=== PATIENT | female | born 1985 | race Caucasian/White ===

== ENCOUNTER 2023-07-06 13:53 | Outpatient (CLI) | payer OTHER ==
--- NOTE | 2023-07-06 14:29 | Sleep Patient Instructions ---
Sleep Center Visit Summary - Patient Visit Information Reason for Visit: Initial consult for evaluation of sleep disordered breathing and other sleep issues. - Patient Instructions Instructions Attached: Sleep Study Additional Instructions: You will be completing a sleep study, either an in-lab polysomnography (PSG) or home sleep study (HST). You will follow-up in the sleep care office after the sleep study is completed to hear the results and talk about therapy, if needed. You will be called by our office staff to schedule this appointment, but you may contact us with any questions. - Clinic Information Contact: [facility] [address] [place] [address] [email or web address] T: [phone]
--- NOTE | 2023-07-06 14:38 | SLEEP CARE CONSULTATION ---
Information from patient questionnaire entered by Kesha Vaughan. I have reviewed and concur with the information entered by Kesha Vaughan. This document represents the service I personally performed and the decisions made by me, Lynn Roque ARNP. History of Present Illness Service Date and Time: 07/06/2023 1353 Reason for Visit: New patient Chief Complaint: reports: Insomnia, Unrefreshed sleep, Snoring, Frequent awakenings at night Date of Onset: PROGRESSIVELY Usual bedtime: 6083-9917 Time it takes to fall asleep: A FEW HRS Snores at night: Yes Observed to quit breathing while asleep: No Sleeps alone due to snoring: Yes Number of times waking at night: 4-6 Reasons for waking at night: reports: Snoring, Other (UNKNOWN, noises). denies: Choking, Gasping for air Toss, Turn, or Twitch while sleeping: Yes Recalls having dreams: No Usually gets out of bed at: 5735-1651 Feels refreshed in the morning: No Morning headache: No Sleepy or fatigued during the day: Yes Ever fallen asleep while driving: No Takes day naps: Yes (1-2 times a week after work, 1 or more on weekends; 15 mins to 3-4 hours) Dreams during day naps: No Prior sleep studies: No Additional HPI information: I had the pleasure of seeing YARON REBOLLAR today regarding the possibility of her having a sleep disorder. Her current complaints are insomnia, fatigue, frequent night awakenings, snoring and unrefreshed sleep. She says she comes here for lack of sleep and has been having trouble sleeping at night. She says her mother snores loudly and has sleep apnea. She says sometimes when she wakes up in middle of night she is unable to go back to sleep. It also takes a "few hours" to fall asleep. Her brain will not shut off and let her go to sleep. She does not wake up feeling refreshed. Her tells her that she snores loudly and will often sleep separate because of the snoring. He has not mentioned if he has noted any pauses in breathing. She will take regular naps that can range from 15 minutes to 3-4 hours. She does talk in her sleep. 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 Patient is Single and lives in . Have you smoked in the past 12 months: No Cigarettes per day (20/pack): 20 Years of smokin Quit date: 2009 Smoking Pack Years: 6.0 Alcohol use: Yes Alcohol amount and frequency: 1 GLASS WINE 2 BEERS 3-4X WEEK Caffeine use: Yes Caffeine amount and frequency: 1 12OZ CUP OF COFFEE 2-3TIMES A WEEK Family History Family history of sleep disordered breathing: Yes Family Hx Sleep Apnea: Mother: Snoring, Sleep apnea - Treated Allergies and Home Medications Known drug allergies: No Drug allergies reviewed: Yes Home medication list reviewed: Yes Allergy and home medication list: Allergies No Known Drug Allergies Allergy (Verified 07/02/23 11:30) Home Medications Medication Instructions Recorded Confirmed Last Taken Type Allertec See Rx Instructions .ROUTE .COMPLEX 07/06/23 07/06/23 Unknown History Aspirin [Sriram] See Rx Instructions .ROUTE .COMPLEX 07/06/23 07/06/23 Unknown History Excedrin See Rx Instructions .ROUTE .COMPLEX 07/06/23 07/06/23 Unknown History Ibuprofen [Advil] See Rx Instructions .ROUTE .COMPLEX 07/06/23 07/06/23 Unknown History Review of Systems Weight gain over past 5 years: 20-25 Cardiovascular: denies: high blood pressure Gastrointestinal: denies: heartburn Neurological: denies: headaches, head trauma Psychiatric: reports: mood disorder (PTSD). denies: anxiety, depression Ear/Nose/Throat: reports: nasal congestion, sinus problems, wisdom teeth removed. denies: injury to nose, tonsillectomy Endocrine: reports: sluggishness Musculoskeletal: reports: joint pain, back pain, joint swelling, muscle pain or cramping Immunologic: reports: sneezing, allergies to food or environment (seasonal, all; cat dander, dog dander) Physical Exam Vital signs obtained and entered by: KESHA Power MA Blood Pressure: 115/72 (RIGHT ARM) Cuff size: regular Heart Rate: 67 O2 Saturation: 97 Height: 5 ft 0.75 in Weight: 169 lb 6.4 oz Body Mass Index: 32.3 BMI Classification: Obese Neck circumference: 14 Mouth and throat: narrow oropharynx Soft palate: normal Hard palate: normal Uvula: normal Uvula visualization: 25% Mallampati Class III Tongue: enlarged in size with teeth thomson on lateral edges Tonsils: small Neck: normal w/o lymphadenopathy or thyromegaly Heart: regular rate and rhythm Lungs: clear bilaterally Impression and Plan 1. Suspected Obstructive Sleep Apnea-Hypopnea Syndrome, as suggested by a history of loud and irregular snoring, frequent awakening during the night, unrefreshed sleep, cognitive impairment, and excessive daytime sleepiness. Narrow oropharynx and obesity are common predisposing factors for obstructive sleep apnea-hypopnea syndrome. I recommend proceeding to polysomnography to co nfirm the diagnosis and to assess severity. If the patient has significant sleep disordered breathing, a manual CPAP titration study will also be performed to find the optimal treatment pressure. I informed the patient of what the sleep studies involve and after some discussion, obtained agreement to proceed. The pathophysiology of obstructive sleep apnea-hypopnea syndrome was discussed with the patient and health risks of cardiovascular and cerebrovascular disease if not treated. Risks of drowsy driving discussed in detail and patient advised to avoid long distance driving and to parts puller at the first sign of drowsiness. Patient agreed to plan. * Schedule polysomnography +- manual CPAP titration study and return in 1-2 weeks after the study to discuss result and initiate therapy. * Avoid long distance driving or driving when feeling sleepy. * Avoid alcohol, sedative and muscle relaxant around bedtime. * Attempt to lose weight. * Review instructions provided by trained office staff on how to prepare for the sleep study. * Return for follow-up after sleep study completed. Counseling Topics: Weight loss health impact Plan: PSG Visit Type: In Office Time Spent with Patient (minutes): 30 Provider Statement: I spent 100% of the Face to Face Visit with the patient with greater than 50% spent counseling the patient and coordination of care.
[2023-07-06 14:53] VITALS: BP 115/72; O2SAT 97
== END 2023-07-06 13:54 | disposition home or self-care (01) ==
LOC: SC 13:53
PROVIDERS: ATTEND Nurse Practitioner Family
DX: R06.83 Snoring (principal); G47.8 Other sleep disorders; R41.89 Other symptoms and signs involving cognitive functions and awareness; G47.10 Hypersomnia, unspecified; G47.00 Insomnia, unspecified; R53.83 Other fatigue
CPT/HCPCS: 99203; 99212

== ENCOUNTER 2023-07-27 19:25 | Outpatient (CLI) | payer OTHER | END 2023-07-27 19:26 | disposition home or self-care (01) | LOC: SC 19:25 | PROVIDERS: ATTEND Nurse Practitioner Family | DX: R06.83 Snoring (principal); G47.10 Hypersomnia, unspecified; R53.83 Other fatigue; G47.8 Other sleep disorders; E66.3 Overweight | CPT/HCPCS: 95810 ==

== ENCOUNTER 2023-09-10 10:47 | Outpatient (CLI) | payer OTHER ==
--- NOTE | 2023-09-10 11:06 | Sleep Patient Instructions ---
Sleep Center Visit Summary - Patient Visit Information Reason for Visit: Sleep study follow-up - Patient Instructions Instructions Attached: Snoring Tips Prevent, Insomnia Tx, Insomnia Additional Instructions: Your sleep study today was negative for significant sleep disordered breathing. You do appear to have sleep maintenance insomnia for which we will have you fill out a 2 week sleep diary and follow up with Dr. Kearney for further evaluat ion and help. You were found to have episodes of snoring. There are different ways to control snoring including weight loss, oral devices made by a dentist or surgical options through ENT specialist. You should not use oral devices that do not fit properly because they can affect your bite. You should also check insurance coverage of oral devices for snoring because they may not be cover well. You may obtain a referral to an ENT specialist through your primary provider. Follow-up in 1-2 months for insomnia. - Clinic Information Contact: [facility] [address] [place] [address] [email or web address] T: [phone]
--- NOTE | 2023-09-10 11:12 | SLEEP CARE CONSULTATION ---
Information from patient questionnaire entered by Kesha Vaughan. I have reviewed and concur with the information entered by Kesha Vaughan. This document represents the service I personally performed and the decisions made by , Lynn Roque ARNP. History of Present Illness Service Date and Time: 09/10/2023 104 Initial [place] Sleepiness Scale score: 10 (07/06/23) Current [place] Sleepiness Scale score: 8 Additional HPI information: YARON RODRÍGUEZ returns for follow up and results of the recently performed polysomnography. The patient was informed of the following findings: No significant sleep disordered breathing with an average AHI of 0.1 and sudha oxygen saturation of 91%. I explained the pathophysiology behind obstructive sleep apnea. Patient does not have sleep apnea and was advised how weight gain could increase the risk of developing sleep apnea in the future. I strongly encouraged the patient to lose weight. Patient has moderate snoring. Snoring can be reduced by weight loss. Weight loss is best achieved with diet consult. Patient instructed to contact PCP for referral. Snoring can also be treated with an oral appliance from a dentist. Advised to check insurance coverage. In addition, an ENT evaluation can be do to see if other treatment is indicated. Patient counseled not drink alcohol less than 4 hours before bedtime as it can increase snoring and apnea. Patient was cautioned about risks of drowsy driving until sleepiness symptoms resolve. Patient denies drowsy driving. Sleep Study - Results Type of Sleep Study: Polysomnography (COMPLETED 07/27/23) Prior sleep studies: No Polysomnography/Home Sleep Study results: IMPRESSION: The quality of the study is good. The patient had normal sleep efficiency. The sleep architecture was also normal. Respiratory monitoring showed no significant sleep disordered breathing (AHI = 0.1) associated or hypoxia (sudha oxygen saturation of 91%). The patient slept adequately in supine position (supine AHI = 0.4; nonsupine = 0.00). Snore was infrequent and moderate in intensity. There was no significant periodic leg movement of sleep. Cardiac rhythm was normal sinus rhythm without significant arrhythmia. No abnormal behavior (parasomnia) observed during the night. Allergies and Home Medications Known drug allergies: No Drug allergies reviewed: Yes Home medication list reviewed: Yes (Allertec, Zyrtec) Allergy and home medication list: Allergies No Known Drug Allergies Allergy (Verified 09/08/23 14:52) Review of Systems Review of systems same as previous: Yes (no changes) Physical Exam Vital signs obtained and entered by: LYNN RAMIREZ-Jannet Blood Pressure: 126/71 Cuff size: long (right arm) Heart Rate: 62 O2 Saturation: 98 Height: 5 ft 0.75 in Weight: 172 lb 3.2 oz Body Mass Index: 32.8 BMI Classification: Obese Impression and Plan 1. Snoring but no significant sleep disordered breathing. Patient advised that often weight loss will reduce snoring as well as apnea risk. An oral appliance can also be used for snoring. This would require a dental consultation. Patient cautioned not to use other online appliances as can cause bite issues. Patient is advised to check if insurance will cover. An ENT consult can also be helpful to determine if any other treatment is an option. 2. Insomnia, sleep onset and maintenance. Patient regularly takes a few hours to go to sleep at night and will wake up and be unable to go back to sleep. Insomnia is generally caused by an irregular sleep schedule, spending too much time in bed, napping, caffeine, electronics, lack of a relaxing bedtime ritual and clock watching. Other factors can include anxiety/depression, pain, medications, and obstructive sleep apnea. A sleep diary will be completed for the next 2 weeks to assist implementation of recommendations and for further evaluation of sleep concerns. 3. Obesity, unspecified. Currently patients BMI is 32.8. Obesity increases the risk of apnea, CPAP pressure requirements and overall health risks especially cardiovascular and diabetes. Thus patient is advised to lose weight. * Complete 2 weeks sleep diary * Attempt to lose weight * Avoid alcohol consumption near bedtime * Return in 1-2 months for insomnia follow up with Dr. Kearney. Counseling Topics: Weight loss health impact Follow up with Sleep Care in: 1-2 months Visit Type: In Office Time Spent with Patient (minutes): 23 Provider Statement: I spent 100% of the Face to Face Visit with the patient with greater than 50% spent counseling the patient and coordination of care.
[2023-09-10 11:17] VITALS: BP 126/71; O2SAT 98
== END 2023-09-10 10:48 | disposition home or self-care (01) ==
LOC: SC 10:47
PROVIDERS: ATTEND Nurse Practitioner Family
DX: R06.83 Snoring (principal); G47.00 Insomnia, unspecified
CPT/HCPCS: 99212; 99213